=== PATIENT | female | born 1985 | race Asian ===

== ENCOUNTER 2023-10-27 20:50 | Inpatient (IN) ==
[2023-10-27] MEDS ORDERED: Lidocaine 1% VIAL 10 MG/ML 30 ML VIAL INJ PRN (22:35)
[2023-10-27] MEDS ORDERED: Nalbuphine 10 MG/ML 1 ML VIAL IV PRN (22:35)
[2023-10-27] MEDS ORDERED: Prochlorperazine 5 mg/ml 2 ml VIAL (10 mg) IV PRN (22:35)
[2023-10-27] MEDS ORDERED: Glycerin ADULT 2.4 gm SUPP PR PRN (22:38)
[2023-10-27] MEDS ORDERED: Lactated Ringers 1000 ml BAG 1,000 ML IV SCH (23:00)
[2023-10-28] MEDS: Witch Hazel PAD JAR TOPICAL PRN (00:38)
[2023-10-28] MEDS: Dibucaine 1% OINT 28.35 GM TUBE PR PRN (00:38)
[2023-10-28] MEDS: Lactated Ringers 1000 ml BAG 1,000 ML IV ONE (04:08)
[2023-10-28] MEDS: Lactated Ringers 1000 ml BAG 1,000 ML IV SCH (04:08)
[2023-10-28] MEDS: Lidocaine 2% JELLY 6 ML Topical TOPICAL ONE ×2 (04:09→04:35)
[2023-10-28] MEDS: Buffered Lidocaine 1% SYRIN 1 ml INTRADERM ONE (04:09)
[2023-10-28 06:42] LABS: ABS Basophils 0.1 10^3/uL (0.0-0.1); ABS Lymphocytes 1.8 10^3/uL (1.0-4.8); ABS Monocytes 1.4 10^3/uL (0.0-0.9); ABS Neutrophils 11.3 10^3/uL (1.5-7.6); Eosinophil % 0.2 %; Hematocrit 37.3 % (35-45); Hemoglobin 12.6 g/dL (11.5-14.3); Lymphocyte % 12.1 %; Mean Corpuscular Hemoglobin 31.1 pg (27-33); Mean Corpuscular Hgb Conc 33.8 g/dL (31-36); Mean Corpuscular Volume 92.1 fL (80-97); Mean Platelet Volume 8.5 fL (7.5-11.2); Platelet Count 206 10^3/uL (150-450); Red Blood Count 4.05 10^6/uL (3.63-4.92); Red Cell Distribution Width 13.8 % (12-17); White Blood Count 14.5 10^3/uL (3.8-11.8)
[2023-10-28 10:14] LABS: Urine Benzodiazepine Screen None Detected (None Detect); Urine Cannabinoids Screen None Detected (None Detect); Urine Opiates Screen None Detected (None Detect)
[2023-10-29 09:51] VITALS: BP 103/68
== END 2023-10-29 14:43 | disposition home or self-care (01) | DRG 560 ==
LOC: MCHOBOUT 20:50 → MCHOB 20:56
PROVIDERS: ADMIT Advanced Practice Midwife; ATTEND Advanced Practice Midwife